=== PATIENT | female | born 1990 | race Caucasian/White ===

== ENCOUNTER → 2018-01-18 | Outpatient (CLI) | payer OTHER ==
[2018-01-18 18:10] LABS: BASO % 0.2 % (0.0-1.0); EOS # 0.5 10^3/uL (0.0-0.50); EOS % 3.2 % (0.0-3.0); HEMATOCRIT 39.7 % (36.0-47.0); HEMOGLOBIN 13.6 g/dl (12.0-15.5); IMMATURE GRANULOCYTE % 0.4 % (0-3.0); LYMPH # 2.8 10^3/uL (1.5-6.5); LYMPH % 19.2 % (24.0-44.0); MEAN CORPUSCULAR HEMOGLOBIN 30.7 pg (27.0-33.0); MEAN CORPUSCULAR HGB CONC 34.3 g/dl (32.0-36.5); MEAN CORPUSCULAR VOLUME 89.6 fl (80.0-96.0); MONO # 1.1 10^3/uL (0.0-0.8); MONO % 7.9 % (0.0-5.0); NEUTROPHILS % 69.1 % (36.0-66.0); PLATELET COUNT, AUTOMATED 221 10^3/uL (150-450); RED BLOOD COUNT 4.43 10^6/uL (4.00-5.40); RED CELL DISTRIBUTION WIDTH 12.7 % (11.5-14.5); WHITE BLOOD COUNT 14.5 10^3/uL (4.0-10.0)
[2018-01-18 19:35] LABS: CHLAMYDIA DNA AMPLIFICATION NEGATIVE (NEGATIVE); GC DNA AMPLIFICATION NEGATIVE (NEGATIVE)
[2018-01-21 11:32] LABS: HBsAg Prenatal NEGATIVE (NEGATIVE); HIV 1&2 SCREEN CENTAUR NEGATIVE (NEGATIVE); RUBELLA IgG QUALITATIVE IMMUNE (IMMUNE)
[2018-01-21 11:32] LABS: HEPATITIS C VIRUS ABY INDEX 0.1 INDEX (<0.8)
== END ==
LOC: M SMT 13:43
DX: Z34.81 Encounter for supervision of other normal pregnancy, first trimester (principal); Z36.89 Encounter for other specified antenatal screening; Z3A.09 9 weeks gestation of pregnancy
CPT/HCPCS: 86762

== ENCOUNTER → 2018-03-21 | Outpatient (CLI) | payer OTHER ==
--- NOTE | 2018-03-22 03:11 | REP ---
Clinical: Anatomical evaluation. Comparison: None . Findings: Examination demonstrates a single live intrauterine in cephalic presentation. motion is identified by technologist. Marginal placenta is noted posteriorly and grade zero extending to the closed internal os. Amniotic fluid volume is normal. Cervix measures 3.2 cm in length and appears closed. No evidence for nuchal cord. Gestational age by LMP 18 weeks 4 days with KRISTEN 08/18/2018 . Gestational age by current measurements 19 weeks 3 days with KRISTEN 08/12/2018 . FHR equals 144 beats per minute. BPD 4.4 cm 19 weeks 2 days HC 16.6 cm 19 weeks 2 days AC 14.1 cm 19 weeks 4 days FL 3.0 cm 19 weeks 2 days HL 2.9 cm 19 weeks 3 days HC/AC ratio 1.18 Estimated weight 290 grams ( 77 percentile). Anatomical assessment demonstrates normal structures including cranium, choroid plexus, cavum, cerebellum/posterior fossa, facial features, lungs, diaphragm, stomach, cord insertion/three-vessel cord, kidneys/bladder, and extremities. Impression: 1. Single live intrauterine in cephalic presentation demonstrating appropriate interval growth. 2. Marginal placenta previa 0 cm from the closed in internal os. 3. Limited evaluation of the heart/ventricular outflow tracts and spine. Electronically Signed by Krishna Tijerina MD 03/22/2018 03:03 A
== END ==
LOC: M RAD 13:53
PROVIDERS: ATTEND Advanced Practice Midwife
DX: O44.22 Partial placenta previa NOS or without hemorrhage, second trimester (principal); Z36.89 Encounter for other specified antenatal screening; Z3A.18 18 weeks gestation of pregnancy

== ENCOUNTER → 2018-05-01 | Outpatient (CLI) | payer OTHER ==
--- NOTE | 2018-05-01 15:20 | REP ---
Clinical: Anatomical evaluation. Comparison: 03/21/2018 . Findings: Examination demonstrates a single live intrauterine in cephalic presentation. motion is identified by technologist. Placenta is noted posterior and grade grade zero without evidence for placenta previa or abruption. Placental tip is noted 2.1 cm from the closed internal os. Amniotic fluid volume is normal. Cervix measures 4.6 cm in length and appears closed. No evidence for nuchal cord. Gestational age by LMP 24 weeks 3 days with KRISTEN 08/18/2018 . Gestational age by current measurements 25 weeks 0 days with KRISTEN 08/14/2018 . FHR equals 133 beats per minute. Estimated weight 775 grams ( 65th percentile). Anatomical assessment demonstrates normal structures including cranium, choroid plexus, cavum, cerebellum/posterior fossa, facial features, lungs, four-chamber heart/ventricular outflow tracts, diaphragm, stomach, cord insertion/three-vessel cord, kidneys/bladder, spine, and extremities. Impression: 1. Single live intrauterine in cephalic presentation demonstrating appropriate interval growth. Anatomical assessment is complete and normal. No gross abnormalities are identified. 2. Placental tip 2.1 cm from the closed internal os. Electronically Signed by Krishna Tijerina MD 05/01/2018 03:12 P
== END ==
LOC: M RAD 13:45
PROVIDERS: ATTEND Advanced Practice Midwife
DX: Z34.82 Encounter for supervision of other normal pregnancy, second trimester (principal)

== ENCOUNTER → 2018-05-08 | Outpatient (CLI) | payer OTHER ==
[2018-05-08 19:07] LABS: HEMATOCRIT 35.4 % (36.0-47.0); HEMOGLOBIN 11.6 g/dl (12.0-15.5); MEAN CORPUSCULAR HEMOGLOBIN 30.4 pg (27.0-33.0); MEAN CORPUSCULAR HGB CONC 32.8 g/dl (32.0-36.5); MEAN CORPUSCULAR VOLUME 92.7 fl (80.0-96.0); PLATELET COUNT, AUTOMATED 178 10^3/uL (150-450); RED BLOOD COUNT 3.82 10^6/uL (4.00-5.40); WHITE BLOOD COUNT 13.1 10^3/uL (4.0-10.0)
== END ==
LOC: M SMT 13:46
PROVIDERS: ATTEND Obstetrics & Gynecology
DX: Z34.82 Encounter for supervision of other normal pregnancy, second trimester (principal); Z3A.00 Weeks of gestation of pregnancy not specified

== ENCOUNTER → 2018-07-03 | Outpatient (CLI) | payer OTHER ==
--- NOTE | 2018-07-04 03:15 | REP ---
Clinical: History of placenta previa Comparison: 05/01/2018 . Findings: Examination demonstrates a single live intrauterine in cephalic presentation. motion is identified by technologist. Placenta is noted posterior and grade grade zero without evidence for placenta previa or abruption. Amniotic fluid volume is normal. Cervix measures 3.9 cm in length and appears closed. No evidence for nuchal cord. Gestational age by LMP 33 weeks 3 days with KRISTEN 08/18/1987 . Gestational age by current measurements 33 weeks 3-day with KRISTEN it is 08/18/2018 . FHR equals 130 beats per minute. Estimated weight 2390 grams ( 56th percentile). Limited anatomical assessment demonstrates no obvious abnormality. Amniotic fluid index: 13.6 cm. Impression: 1. Single live advanced gestation in cephalic presentation demonstrating appropriate interval growth. 2. Posterior grade zero placenta without evidence for placenta previa. 3. No gross abnormalities are identified. Electronically Signed by Krishna Tijerina MD 07/04/2018 03:07 A
== END ==
LOC: M RAD 13:45
PROVIDERS: ATTEND Advanced Practice Midwife
DX: O44.23 Partial placenta previa NOS or without hemorrhage, third trimester (principal); Z3A.33 33 weeks gestation of pregnancy

== ENCOUNTER → 2018-07-25 | Outpatient (REF) | payer OTHER | LOC: M LAB REF 17:25 | PROVIDERS: ATTEND Obstetrics & Gynecology | DX: Z34.83 Encounter for supervision of other normal pregnancy, third trimester (principal); Z3A.00 Weeks of gestation of pregnancy not specified ==

== ENCOUNTER 2018-08-20 12:31 | Inpatient (IN) | payer OTHER ==
[2018-08-20] VITALS (8 sets, daily range): BP systolic 108–131; BP diastolic 60–79
[~2018-08-20] VITALS: Ht 162.6 cm; Wt 79.1 kg
[2018-08-20] MEDS ORDERED: PRENTAB9 PO (12:59)
[2018-08-20] MEDS ORDERED: SIME180C PO (12:59)
[2018-08-20] MEDS ORDERED: LACTATED RINGER'S 1000 ML IV STA (16:18)
--- NOTE | 2018-08-20 16:30 | NUR ---
L&D H&P HPI: 28 year old at 40+2 weeks estimated gestation. Expected date of confinement: 08/18/18. dated by LMP c/w first TM US. Presents today for a scheduled elective IOL. Denies vaginal bleeding, loss of fluid, or uterine contractions. Reports regular movement. course uncomplicated. labs: Blood type O+, antibody screen negative, rubella immune, VDRL nonreactive , hepatitis B surface antigen negative, HIV negative, hepatitis C antibody negative, GC/CT negative, aneuploidy/maternal serum screening: low risk XY (Panorama), 1 hour glucose challenge test: 89, GBS negative Vaccinations: Tdap 05/31/18 Radiology/OB US: no anomalies or placental abnormalities detected. 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 No murmurs, rubs or gallops. Lungs: Clear to auscultation bilaterally. No wheezes, crackles, rales or rhonchi. Abdomen: Uterine fundal height consistent with dates. No guarding or rebound tenderness. Extremities: No clubbing, cyanosis or edema. Normal deep tendon reflexes. Sterile vaginal exam: 1 cm, 50 %effacement, -3 station, cephalic, intact External monitoring: heart rate category 1 Tocodynamometer: contractions occurring rarely, intermittently Assessment/Plan 28 year old at 40+2 weeks gestation. Diagnosis: Full term gestation; elective IOL. Reassuring and maternal status. -Admit to labor and delivery with routine labs and orders -External monitoring and tocodynamometer -Pediatrics and anesthesia consultations as needed. -Start with cervical ripening; Misoprostol 50mcg SL. Dr. Kelvin Joy, DO, FACOG
[2018-08-20 16:33] LABS: HEMATOCRIT 34.7 % (36.0-47.0); MEAN CORPUSCULAR HEMOGLOBIN 25.6 pg (27.0-33.0); MEAN CORPUSCULAR HGB CONC 31.7 g/dl (32.0-36.5); MEAN CORPUSCULAR VOLUME 80.7 fl (80.0-96.0); PLATELET COUNT, AUTOMATED 203 10^3/uL (150-450); WHITE BLOOD COUNT 10.6 10^3/uL (4.0-10.0)
[2018-08-20] MEDS: miSOPROStol 50 MCG 1/2 TAB (S0191) SL SCH ×2 (16:47→22:01)
[2018-08-20] MEDS: LR 1,000 ML IV SCH (16:55)
[2018-08-21] VITALS (56 sets, daily range): BP systolic 90–143; BP diastolic 51–84
[2018-08-21] MEDS ORDERED: PROMETHAZINE INJ 25 MG/ML VIAL (J2550) IV ONE
[2018-08-21] MEDS ORDERED: BUTORPHANOL 2 MG/ML INJ (J0595) IV ONE
[2018-08-21] MEDS: miSOPROStol 50 MCG 1/2 TAB (S0191) SL SCH (02:33)
[2018-08-21] MEDS: LR 1,000 ML IV SCH ×3 (05:07→17:05)
[2018-08-21] MEDS ORDERED: OXYTOCIN DRIP 30 UNITS in APPROPRIATE DILUENT 1 EA IV SCH (09:00)
[2018-08-21] MEDS ORDERED: FENTANYL 2MCG/ML ROPIVACAINE 0.2% IN 0.9% NACL 100ML IVBAG As Ordered ONE (11:31)
[2018-08-21] MEDS ORDERED: NALOXONE INJ 0.4 MG/1 ML VIAL (J2310) IV PRN (12:45)
[2018-08-21] MEDS ORDERED: ePHEDrine SULFATE 25 MG/5 ML(5MG/ML) SYRINGE IV PRN (12:45)
[2018-08-21] MEDS: FENTANYL/ROPIVACAINE/NACL BAG 100 ML EPIDURAL SCH ×2 (12:45→19:31)
[2018-08-21] MEDS ORDERED: EPIDURAL/PCA KEYS XX PRN (12:45)
[2018-08-21] MEDS ORDERED: LACTATED RINGER'S 1000 ML IV PRN (12:45)
[2018-08-21] MEDS ORDERED: diphenhydrAMINE INJ 50MG/ML VIAL (J1200) IV PRN (12:45)
[2018-08-21] MEDS ORDERED: EPIDURAL COMMENT XX SCH (12:45)
[2018-08-21] MEDS ORDERED: ONDANSETRON 4MG/2ML VIAL (J2405) IV PRN (12:45)
[2018-08-21] MEDS ORDERED: REFRIGERATOR IV KEYS XX PRN (12:45)
[2018-08-22] VITALS (23 sets, daily range): BP systolic 102–142; BP diastolic 52–81
[2018-08-22] MEDS: FENTANYL/ROPIVACAINE/NACL BAG 100 ML EPIDURAL SCH (05:02)
[2018-08-22] MEDS: LR 1,000 ML IV SCH (08:32)
[2018-08-22 10:19] LABS: CORD GAS ABE V -9.6; CORD GAS HCO3 V 16.7 MEQ/L; CORD GAS O2 SAT V 52.2 %; CORD GAS PCO2 V 37.8 mmHg; CORD GAS PH V 7.262 UNITS; CORD GAS TCO2 V 17.8 MEQ/L
[2018-08-22 10:20] LABS: CORD GAS ABE A -10.8; CORD GAS HCO3 A 19.1 MEQ/L; CORD GAS O2 SAT A 47.1 %; CORD GAS PCO2 A 58.3 mmHg; CORD GAS PH A 7.133 UNITS; CORD GAS PO2 A 26.9 mmHg; CORD GAS SBC A 15.1 MEQ/L; CORD GAS TCO2 A 20.9 MEQ/L
[2018-08-22] MEDS ORDERED: OXYTOCIN 30 UNITS IN 0.9% NaCl 500ML IV BAG (J2590) As Ordered ONE (10:41)
[2018-08-22] MEDS ORDERED: DIBUCAINE 1% OINTMENT 30GM TOP PRN (10:45)
[2018-08-22] MEDS ORDERED: ONDANSETRON 4MG/2ML VIAL (J2405) IV PRN (10:45)
[2018-08-22] MEDS ORDERED: MEASLES,MUMPS,RUBELLA VACCINE INJ (MMR-II) (90707) SC SCH (10:45)
[2018-08-22] MEDS ORDERED: ACETAMINOPHEN 500 MG TAB PO PRN (10:45)
[2018-08-22] MEDS ORDERED: OXYTOCIN DRIP 30 UNITS in APPROPRIATE DILUENT 1 EA IV ONE (10:45)
[2018-08-22] MEDS ORDERED: METHYLERGONOVINE MALEATE 0.2 MG TAB PO PRN (10:45)
[2018-08-22] MEDS ORDERED: DOCUSATE SODIUM 100 MG CAP PO PRN (10:45)
[2018-08-22] MEDS ORDERED: RHOGAM 300 MCG (1500 IU) INJ (J2790) IM SCH (10:45)
[2018-08-22] MEDS: IBUPROFEN 800 MG TAB PO PRN ×2 (12:36→20:48)
[2018-08-22] MEDS ORDERED: LIDOCAINE 1% MDV 20ML VIAL As Ordered ONE (17:02)
[2018-08-22] MEDS ORDERED: LIDOCAINE 1% MDV 20ML VIAL INFIL ONE (17:30)
[2018-08-23 06:00] VITALS: BP 111/64
[2018-08-23] MEDS: IBUPROFEN 800 MG TAB PO PRN (07:45)
[2018-08-23] MEDS ORDERED: PRENATAL VITAMINS CHEWABLE TABLET PO SCH (09:00)
--- NOTE | 2018-08-23 12:53 | DN ---
DATE OF DELIVERY: 08/22/2018 PREDELIVERY DIAGNOSIS: 40-3/7 weeks gestation, labor induction. POSTDELIVERY DIAGNOSIS: Delivered. PROCEDURE: Spontaneous vaginal delivery. SENIOR IT ARCHITECT: Dr. Efraín Juares BACON SLICER: Estella Gomez, PGY-3 ANESTHESIA: Epidural. ESTIMATED BLOOD LOSS: 300 mL. FINDINGS: 7 pound 12 ounce male , scores 8 and 9. DELIVERY SUMMARY: After a 2 hour and 45 minute second stage, patient spontaneously delivered a 7 pound 12 ounce male , scores 8 and 9 under epidural anesthesia. Nuchal cord times one was reduced. The shoulders delivered with ease. The infant was handed to the mother and cried immediately. Cord was doubly clamped and cut. The placenta delivered spontaneously, appeared to be intact. Patient received intravenous (IV) Pitocin immediately after delivery of the placenta. Small second degree perineal laceration was repaired with #3-0 Vicryl under local anesthesia in the usual fashion. Sponge and needle counts were correct.
[2018-08-23] MEDS ORDERED: DIBU10OI TOP (18:17)
== END 2018-08-23 16:45 | disposition home or self-care (01) | DRG 807 ==
LOC: M LDI 12:31 → M OBS 08-22 12:01
PROVIDERS: ADMIT Obstetrics & Gynecology; ATTEND Obstetrics & Gynecology
PROC: 10E0XZZ Delivery of Products of Conception, External Approach (ICD-10-PCS; principal; 2018-08-22)
PROC: 0KQM0ZZ Repair Perineum Muscle, Open Approach (ICD-10-PCS; 2018-08-22)
DX: O48.0 Post-term pregnancy (principal); Z37.0 Single live birth; Z3A.40 40 weeks gestation of pregnancy; O69.82X0 Labor and delivery complicated by other cord entanglement, without compression, not applicable or unspecified; O70.1 Second degree perineal laceration during delivery